=== PATIENT | male | born 1960 | race Caucasian/White ===

== ENCOUNTER 2021-01-07 17:13 | Emergency (ER) | payer BC ==
[2021-01-07 17:20] VITALS: BP 175/89; PULSE 96
[2021-01-07] MEDS: methylPREDNISolone Acetate 80 MG/ML SDV IM ONE (17:43)
--- NOTE | 2021-01-07 17:50 | EDM.PDOC ---
ED HPI GENERAL MEDICAL PROBLEM - General Chief Complaint: Back Pain or Injury Stated Complaint: back pain Time Seen by Provider: 01/07/21 17:30 Source of Information: Reports: Patient History Limitations: Reports: No Limitations - History of Present Illness INITIAL COMMENTS - FREE TEXT/NARRATIVE: He is seen for evaluation of pain in his upper back. He reports a constant severe deep aching pain and tightness in the upper back bilaterally, right more than left. Increased pain with movement. Pain has been present for about 2 weeks, but is worse today. He has been working with a chiropractor and taking Flexeril and NSAIDs which he feels have been helpful. Unfortunately he left his Flexeril at the chiropractor's office on Friday so he did not have it over the weekend. No pain radiating into the arms or legs. No numbness or tingling in the fingers or toes. No injury that he is aware of. He does have increased pain in the back with deep inspiration, but otherwise denies shortness of breath. No chest pain. No dizziness or lightheadedness. middle of back Pain Score (Numeric/FACES): 10 - Related Data Allergies Allergy/AdvReac Type Severity Reaction Status Date / Time No Known Allergies Allergy Verified 01/07/21 17:14 Home Meds: Home Meds Cyclobenzaprine [Flexeril] 10 mg PO TID 01/07/21 [History] Dapagliflozin Propanediol [Farxiga] 5 mg PO DAILY 01/07/21 [History] Escitalopram [Lexapro] 10 mg PO DAILY 01/07/21 [History] Felodipine [Felodipine ER] 5 mg PO DAILY 01/07/21 [History] Insulin Glarg,Human.Rec.Analog [Lantus Solostar] 76 unit SUBCUT DAILY 01/07/21 [History] Liraglutide [Victoza 3-Keenan] 1.2 mg SUBCUT DAILY 01/07/21 [History] Non-Formulary Medication [NF Drug] 1 cap PO DAILY 01/07/21 [History] Rosuvastatin [Crestor] 10 mg PO BEDTIME 01/07/21 [History] lisinopriL [Lisinopril] 10 mg PO DAILY 01/07/21 [History] metFORMIN HCl [Metformin HCl] 1,000 mg PO BID 01/07/21 [History] traMADol [Ultram] 50 mg PO TID PRN 01/07/21 [History] ED ROS GENERAL - Review of Systems Review Of Systems: See Below Constitutional: Denies: Fever, Chills HEENT: Denies: Rhinitis, Sinus Problem, Throat Pain Respiratory: Denies: Shortness of Breath, Cough Cardiovascular: Denies: Chest Pain, Palpitations GI/Abdominal: Denies: Abdominal Pain, Nausea, Vomiting Musculoskeletal: Reports: Back Pain ED EXAM, GENERAL - Physical Exam Exam: See Below Exam Limited By: No Limitations General Appearance: Alert, WD/WN, Moderate Distress Respiratory/Chest: No Respiratory Distress, Lungs Clear, Normal Breath Sounds Cardiovascular: Regular Rate, Rhythm, No Murmur Back Exam: Other (Upper back: No visible deformity or discoloration. No swelling. No significant spinal tenderness. Sharp tenderness and diffuse tightness in the right parathoracic muscles without specific trigger point. Moderate tenderness and diffuse tightness in the left parathoracic muscles. Does have increased upper back pain with extreme forward flexion of the neck.) Course - Vital Signs Last Recorded V/S: Last Vital Signs Temp 36.6 C 01/07/21 17:14 Pulse 96 01/07/21 17:14 Resp 20 01/07/21 17:14 BP 175/89 H 01/07/21 17:14 Pulse Ox - Orders/Labs/Meds Meds: Medications Discontinued Medications Generic Name Dose Route Start Last Admin Trade Name Freq PRN Reason Stop Dose Admin Methylprednisolone Acetate 120 mg 01/07/21 17:40 01/07/21 17:43 Depo-Medrol IM 01/07/21 17:41 120 mg ONETIME ONE Administration Departure - Departure Time of Disposition: 17:50 Disposition: Home, Self-Care 01 Condition: Good Clinical Impression: Upper back pain on left side - Discharge Information *PRESCRIPTION DRUG MONITORING PROGRAM REVIEWED*: Not Applicable *COPY OF PRESCRIPTION DRUG MONITORING REPORT IN PATIENT ELOY: Not Applicable Instructions: Acute Back Pain, Adult, Methylprednisolone Suspension for Injection Referrals: Anel Tim PA [Primary Care Provider] - Forms: ED Department Discharge Additional Instructions: Upper back stretches at least twice daily. Apply ice or heat to the upper back for 15 minutes 3-4 times daily. Flexeril 10 mg 1 tablet up to 3 times daily. Follow-up with primary physician if not improving. Sepsis Event Note (ED) - Evaluation Sepsis Screening Result: No Definite Risk - Focused Exam Vital Signs: Vital Signs Temp Pulse Resp BP 01/07/21 17:14 36.6 C 96 20 175/89 H - Assessment/Plan Assessment:: Upper back pain left Plan: Discussed findings and treatment options. I demonstrated upper back stretches to be done at least twice daily. Apply ice or heat to the upper back for 15 minutes 3-4 times daily. He is given Medrol 120 mg IM in the ED. Flexeril 10 mg 1 tablet up to 3 times daily. Follow-up with primary physician if not improving.
== END 2021-01-07 17:55 | disposition home or self-care (01) ==
LOC: LL.ED 17:13
DX: M54.6 Pain in thoracic spine (principal); Z79.899 Other long term (current) drug therapy
CPT/HCPCS: 96372; 99283; J1040

== ENCOUNTER 2021-07-25 15:30 | Emergency (ER) | payer BC ==
--- NOTE | 2021-07-25 16:16 | EDM.PDOC ---
ED HPI GENERAL MEDICAL PROBLEM - General Chief Complaint: ENT Problem Stated Complaint: Tooth pain/numbness by lip Time Seen by Provider: 07/25/21 16:10 Source of Information: Reports: Patient - History of Present Illness INITIAL COMMENTS - FREE TEXT/NARRATIVE: Remy is a 61 y/o male who comes to the ER with complaints of numbness on the outer lower mouth region. He has contacted his dentist and was given a prescription of Amoxicillin, but the has not yet started the meds. His dentist has him in to be seen tomorrow AM at 9:30. No fevers. Has not taken any medications. Because he described the sensation as "numbess" in the region of the dental infection, his made him present to the ER to have an CA or a Stroke ruled out. He has had no chest pain, SOB, diaphoresis, exertion dyspnea, etc. Also no unilateral weakness, loss of strength, seizures, etc. Left Lower Oral/Mouth Pain Score (Numeric/FACES): 5 - Related Data Allergies Allergy/AdvReac Type Severity Reaction Status Date / Time No Known Allergies Allergy Verified 07/25/21 15:50 Home Meds: Home Meds Dapagliflozin Propanediol [Farxiga] 5 mg PO DAILY 01/07/21 [History] Escitalopram [Lexapro] 10 mg PO DAILY 01/07/21 [History] Felodipine [Felodipine ER] 5 mg PO DAILY 01/07/21 [History] Insulin Glarg,Human.Rec.Analog [Lantus Solostar] 30 unit SUBCUT DAILY 01/07/21 [History] Non-Formulary Medication [NF Drug] 1 cap PO DAILY 01/07/21 [History] Rosuvastatin [Crestor] 10 mg PO BEDTIME 01/07/21 [History] lisinopriL [Lisinopril] 10 mg PO DAILY 01/07/21 [History] metFORMIN HCl [Metformin HCl] 1,000 mg PO DAILY 01/07/21 [History] Levothyroxine 25 mcg PO ACBREAKFAST 07/25/21 [History] Past Medical History HEENT History: Reports: Hard of Hearing Cardiovascular History: Reports: High Cholesterol, Hypertension Musculoskeletal History: Reports: Other (See Below) Other Musculoskeletal History: new back pain for the last 4 weeks Psychiatric History: Reports: Depression Endocrine/Metabolic History: Reports: Diabetes, Type II Social & Family History - Tobacco Use Tobacco Use Status *Q: Never Tobacco User Second Hand Smoke Exposure: No - Caffeine Use Caffeine Use: Reports: Coffee - Recreational Drug Use Recreational Drug Use: No Review of Systems - Review of Systems Review Of Systems: See Below Constitutional: Reports: No Symptoms Eyes: Reports: No Symptoms Ears: Reports: No Symptoms Nose: Reports: No Symptoms Mouth/Throat: Reports: Pain ("Numbess" along lower gum region on the left side of chin.) Respiratory: Reports: No Symptoms Cardiovascular: Reports: No Symptoms GI/Abdominal: Reports: No Symptoms Genitourinary: Reports: No Symptoms Musculoskeletal: Reports: No Symptoms Skin: Reports: No Symptoms Neurological: Reports: No Symptoms Psychiatric: Reports: No Symptoms ED EXAM, GENERAL - Physical Exam Exam: See Below General Appearance: Alert, WD/WN, No Apparent Distress, Other (Elderly male, dr barbour appropriately.) Eye Exam: Bilateral Eye: PERRL Ears: Normal External Exam, Normal Canal, Hearing Grossly Normal, Normal TMs Nose: Normal Inspection, Normal Mucosa Throat/Mouth: Normal Inspection, Normal Lips, Normal Oropharynx, Normal Voice, Other (Note several missing teeth, note tenderness along gumline at Teeth #20 & #21, no obviously abscess.) Head: Atraumatic, Normocephalic Neck: Normal Inspection, Supple, Non-Tender Respiratory/Chest: No Respiratory Distress, Lungs Clear, Chest Non-Tender Cardiovascular: Normal Peripheral Pulses, Regular Rate, Rhythm, No Murmur GI/Abdominal: Normal Bowel Sounds, Soft, Non-Tender (Male) Exam: Deferred Rectal (Males) Exam: Deferred Back Exam: Other (Not examined) Extremities: Normal Inspection, No Pedal Edema, Normal Capillary Refill Neurological: Alert, Oriented, CN II-XII Intact, Normal Cognition, Normal Gait Psychiatric: Normal Affect, Normal Mood Skin Exam: Warm, Dry, Intact, Normal Color, No Rash Course - Vital Signs Text/Narrative:: 1610 The patient was seen by the [facility]. He really had no signs or sx of CA or Stroke and therefore no further testing indicated. He was advised to start his abx KELSEY. His questions were answered. Reassurance given. He was advised to keep the dentist appt tomorrow AM and return as needed for any other sx. Written instructions were given and he left the ER in stable condition. Last Recorded V/S: Last Vital Signs Temp 36.4 C 07/25/21 15:42 Pulse 87 07/25/21 15:42 Resp 16 07/25/21 15:42 BP 153/83 H 07/25/21 15:42 Pulse Ox 100 07/25/21 15:42 Departure - Departure Time of Disposition: 16:21 Disposition: Home, Self-Care 01 Condition: Good Clinical Impression: Pain, dental - Discharge Information *PRESCRIPTION DRUG MONITORING PROGRAM REVIEWED*: Not Applicable *COPY OF PRESCRIPTION DRUG MONITORING REPORT IN PATIENT ELOY: Not Applicable Instructions: Dental Pain Referrals: Anel Tim PA [Primary Care Provider] - Additional Instructions: -Continue Amoxicillin prescription given to you by the dentist. -Keep the dental appt in the AM. -Return as needed to the ER for any concerns. Sepsis Event Note (ED) - Focused Exam Vital Signs: Vital Signs Temp Pulse Resp BP Pulse Ox 07/25/21 15:42 36.4 C 87 16 153/83 H 100 - Problem List & Annotations (1) Pain, dental SNOMED Code(s): 90424015 Code(s): K08.89 - OTHER SPECIFIED DISORDERS OF TEETH AND SUPPORTING STRUCTURES Status: Acute Current Visit: Yes Annotation/Comment:: - Amoxicillin Rx given by dentist. -Has dental appt in the AM. - Problem List Review Problem List Initiated/Reviewed/Updated: Yes - Assessment/Plan Plan: -Discharge to home.
== END 2021-07-25 16:25 | disposition home or self-care (01) ==
LOC: LL.ED 15:30 → SUPCPDRO 15:30 → LL.ED 16:25
DX: K08.89 Other specified disorders of teeth and supporting structures (principal); E78.00 Pure hypercholesterolemia, unspecified; I10 Essential (primary) hypertension; E11.9 Type 2 diabetes mellitus without complications; Z79.4 Long term (current) use of insulin; Z79.899 Other long term (current) drug therapy
CPT/HCPCS: 99283